=== PATIENT | male | born 1970 | race Caucasian/White ===

== ENCOUNTER 2019-11-04 13:14 | Inpatient (IN) | payer SELFPAY ==
[~2019-11-04] VITALS: Ht 185.4 cm; Wt 89.4 kg
[2019-11-04 13:28] VITALS: BP_SYST 137
[2019-11-04] MEDS ORDERED: DIPH-TET-PERTUS Vaccine 0.5 ML VIAL (ADACEL) I.M. ONE (15:15)
[2019-11-04] MEDS ORDERED: MORPHINE 4 MG/ML INJ. SYRINGE IM ONE (15:15)
[2019-11-04] MEDS ORDERED: LIDOCAINE/EPI 1% 1:100000 20 ML VIAL INJ ONE ×3 (16:15→17:30)
[2019-11-04] MEDS: ceFAZolin SODIUM 1 GM VIAL IM ONE ×2 (16:58→18:07)
[2019-11-04] MEDS ORDERED: LIDOCAINE 1%, 20 ML MDV 20 ML ONE (17:07)
[2019-11-04] MEDS ORDERED: DIAZEPAM 5 MG TABLET (VALIUM) PO ONE (17:15)
[2019-11-04] MEDS ORDERED: CEFAZOLIN 2 GM IVPB PREMIX 50 ML IV ONE (18:30)
[2019-11-04] MEDS ORDERED: D5NS 1,000 ML IV SCH (18:37)
[2019-11-04] MEDS ORDERED: ONDANSETRON HCL 4 MG/2 ML VIAL IVP PRN (18:45)
[2019-11-04] MEDS ORDERED: MORPHINE SULFATE 10 MG/ML VIAL IVP PRN (18:45)
[2019-11-04] MEDS ORDERED: HYDROcodone/ACETAMIN 5-325 MG TAB (NORCO/ VICODIN) PO PRN (18:45)
[2019-11-04] MEDS ORDERED: HYDROmorphone 2 MG/ML VIAL IVP PRN (18:45)
[2019-11-04] MEDS ORDERED: OMEP20TA20 PO (18:52)
[2019-11-04] MEDS ORDERED: CETI1TAB2 PO (18:53)
[2019-11-04 18:59] LABS: BASOPHILS # (AUTO) 0.1 K/uL (0.0-0.2); BASOPHILS % (AUTO) 0.6 % (0.0-2.0); EOSINOPHILS # (AUTO) 0.2 K/uL (0.0-0.4); EOSINOPHILS % (AUTO) 2.5 % (0.0-4.0); HEMATOCRIT 44.2 % (36-54); HEMOGLOBIN 15.1 g/dL (14.0-18.0); LYMPHOCYTES # (AUTO) 1.3 K/uL (1.0-5.5); MEAN CORPUSCULAR HEMOGLOBIN 31 pg (27-31); MEAN CORPUSCULAR HGB CONC 34 % (32-36); MEAN CORPUSCULAR VOLUME 89 fL (79.0-98.0); MONOCYTES # (AUTO) 0.7 K/uL (0.0-1.0); MONOCYTES % (AUTO) 8.5 % (1.7-9.3); NEUTROPHILS # (AUTO) 5.7 K/uL (1.8-7.7); NEUTROPHILS % (AUTO) 72.4 % (40.0-70.0); PLATELET COUNT (AUTO) 212 K/uL (130-430); RED BLOOD CELL COUNT(AUTO) 4.95 MIL/uL (4.2-6.2); RED CELL DISTRIBUTION WIDTH 13.3 % (9.0-15.0); WHITE BLOOD COUNT (AUTO) 7.9 K/uL (4.8-10.8)
[2019-11-04 19:11] LABS: CALCIUM 8.8 mg/dL (8.4-11.0); CREATININE 0.96 mg/dL (0.55-1.30); POTASSIUM 3.7 mmol/L (3.5-5.1)
[2019-11-04 19:27] VITALS: BP_SYST 133
[2019-11-04] MEDS ORDERED: fentaNYL CITRATE/PF 100 MCG/2 ML AMP IVP PRN ×2 (21:30)
[2019-11-04 21:32] VITALS: BP_SYST 133
[2019-11-04] MEDS ORDERED: PROPOFOL 200MG/ 20ML VIAL (DIPRIVAN) IV ONE (21:40)
[2019-11-04] MEDS ORDERED: NS IRRIG SOLN 1000 ML IR ONE (21:40)
[2019-11-04] MEDS ORDERED: LR 1,000 ML IV.SOLN IV ONE (21:40)
[2019-11-04] MEDS ORDERED: fentaNYL CITRATE/PF 100 MCG/2 ML AMP ONE (21:40)
[2019-11-04] MEDS ORDERED: MIDAZOLAM HCL 5 MG/ML VIAL (VERSED) IV ONE (21:40)
[2019-11-04] MEDS ORDERED: BACITRACIN 1 GM OINT TP ONE (21:40)
[2019-11-04] MEDS ORDERED: LIDOCAINE/EPI MPF 1%1:200000 30 ML VIAL ONE (21:40)
[2019-11-04] MEDS ORDERED: BUPIVACAINE /PF 0.25% 30 ML VIAL INJ ONE (21:40)
[2019-11-04 21:56] VITALS: BP_SYST 119
[2019-11-04 22:29] VITALS: BP_SYST 132
[2019-11-05] MEDS ORDERED: AMPICILLIN SODIUM/SULBACTAM NA 3 GM in NS 100 ML IV SCH ×2
== END 2019-11-04 23:07 | disposition home or self-care (01) | DRG 909 ==
LOC: SED 13:14 → SMU 18:37
PROVIDERS: ADMIT Surgery; ATTEND Surgery
PROC: 0YJ Anatomical Regions, Lower Extremities, Inspection (ICD-10-PCS; 2019-11-04)
PROC: 0KCR0ZZ Extirpation of Matter from Left Upper Leg Muscle, Open Approach (ICD-10-PCS; principal; 2019-11-04 20:30)
DX: S71.142A Puncture wound with foreign body, left thigh, initial encounter (principal); J45.909 Unspecified asthma, uncomplicated; X58.XXXA Exposure to other specified factors, initial encounter; Z79.899 Other long term (current) drug therapy; Y93.89 Activity, other specified; Y92.89 Other specified places as the place of occurrence of the external cause; Y99.8 Other external cause status
CPT/HCPCS: 36415; 73552; 76000; 80048; 85025; 87040-TC; 90715; 96365; 99285; J0295; J0690; J2001; J2250; J2270; J2704; J3010; J3490; J7120